=== PATIENT | male | born 1995 | race Caucasian/White ===

== ENCOUNTER 2016-07-20 23:59 | Emergency (ER) | payer SELFPAY ==
[~2016-07-20 23:59] MED LIST: KEFLEX PO; KEFLEX500 MG PO; TYLENOL #3 PO
== END 2016-07-21 00:26 | disposition left against medical advice (07) ==
LOC: CED 23:59
DX: Z53.21 Procedure and treatment not carried out due to patient leaving prior to being seen by health care provider (principal)

== ENCOUNTER → 2016-08-06 03:37 | Emergency (ER) | payer SELFPAY ==
--- NOTE | ~2016-08-06 | CR21 ---
[facility] A Service of [facility] & [facility] RADIOLOGY TEXT RESULTS PATIENT: EMILY TRAN LOCATION: [facility] : [birth year] UNIT #: [id number] AGE: [address]: JAMSHID Oneal Doctor SEX: M ORDER DR: [id number] [facility] [address] [place], [place] [address] [id number] E MR#: [id number] #: [id number] NAME: EMILY TRAN : 1995 SEX: M STUDY DATE/TIME: 08/06/2016 2:49 UNIT: MATEUS ROOM: STUDY DESCRIPTION: CR Ankle Min 3 Views Rt Attending Physician: Er Doctor Jm Ordering Physician: Mauri Camara M.D. Primary Care Physician: Primary Care Physician No MEDICAL IMAGING REPORT This report is preliminary unless electronic signature is present EXAM Right ankle HISTORY Right ankle pain after injury tonight. FINDINGS Three views of the right ankle were obtained. There seems to be a very subtle fracture suggested with some lateral cortical interruption in the distal fibula. There is, however, only medial soft tissue swelling suggested. The other bones are normal. IMPRESSION There seems to be medial soft tissue swelling but there may be a nondisplaced fracture running transversely through the distal fibula. It is not as definite as the one seen on the left side, but there seems to be a definite cortical interruption on the lateral side at the fibula. Dictated by... Tacos Pineda M.D. THIS IS AN ELECTRONICALLY VERIFIED REPORT Tacos Pineda M.D. at 08/06/2016 9:54 PM SERGIO/zackery TD: 08/06/2016 18:51 JOB #: [id number] MEDICAL IMAGING REPORT Page 1 of 1 COPY
== END | disposition left against medical advice (07) ==
LOC: CED 03:37
DX: Z53.21 Procedure and treatment not carried out due to patient leaving prior to being seen by health care provider (principal)
CPT/HCPCS: 73610

== ENCOUNTER 2016-08-14 03:59 | Emergency (ER) | payer SELFPAY | END 2016-08-14 04:00 | disposition left against medical advice (07) | LOC: CED 03:59 | DX: Z53.21 Procedure and treatment not carried out due to patient leaving prior to being seen by health care provider (principal) ==

== ENCOUNTER 2016-10-22 05:02 | Emergency (ER) | payer SELFPAY | END 2016-10-22 05:43 | disposition left against medical advice (07) | LOC: CED 05:02 | DX: Z53.21 Procedure and treatment not carried out due to patient leaving prior to being seen by health care provider (principal) ==